=== PATIENT | male | born 1950 | race Hispanic/Latino ===

== ENCOUNTER → 2018-11-09 | Day surgery (SDC) | payer MEDICARE ==
[2018-11-06 13:17] LABS: BASOPHILS # (AUTO) 0.1 (0.0-0.1); BASOPHILS % 0.8 % (0.0-1.0); EOSINOPHILS # (AUTO) 0.3 (0.0-0.4); EOSINOPHILS % 5.1 % (0.0-6.0); HEMATOCRIT 41.8 % (38.2-49.6); HEMOGLOBIN 13.2 g/dL (14.0-18.0); LYMPHOCYTES # (AUTO) 1.7 (1.0-3.2); LYMPHOCYTES % 26.3 % (18.0-39.1); MEAN CORPUSCULAR HGB CONC 31.6 g/dL (31-35); MEAN CORPUSCULAR VOLUME 88.7 fL (81-99); MONOCYTES # (AUTO) 0.4 (0.2-0.8); MONOCYTES % 6.6 % (4.4-11.3); PLATELET COUNT 169 x10e3/uL (140-360); RED BLOOD COUNT 4.71 x10e6/uL (4.3-5.7); RED CELL DISTRIBUTION WIDTH 13.4 % (11.7-14.4)
[2018-11-06 14:02] LABS: ANION GAP 13.2 mmol/L (8-16); CALCIUM 9.4 mg/dL (8.4-10.2); CREATININE, SERUM 1.21 mg/dL (0.72-1.25); POTASSIUM 4.2 mmol/L (3.5-5.1)
[~2018-11-09] MED LIST: AVODART0.5 MG PO; BUPIVACAINE HC 0.75% PF 10ML VIAL INJ ONE; CHONDR SU A NA/HYALUR SOD 1 EACH KIT IO ONE; EPINEPHRINE HCL 1:1000 1ML 1 MG/ML AMP ONE; FINASTERIDE5 MG PO; IBUPROFEN400 MG PO; LIDOCAINE 2% /EPINEPHRINE 20 ML SDV INJ ONE; LIDOCAINE HCL-PF 4% 40 MG/1 ML 5ML AMP ONE; LOVASTATIN40 MG PO; MACROBID 100 M100 MG; METFORMIN HCL1000 MG PO; MIDAZOLAM HCL 2 MG/2 ML VIAL ONE; NITROFURANTOIN100 MG PO; OMEPRAZOLE40 MG PO; PILOCARPINE HCL(OPTH) 15 ML LIQD ONE; PIOGLITAZONE45 MG PO; POVIDONE IODINE 5% (OPTH) 30 ML BTL ONE; PROPOFOL IV EMULSION 10 MG/ML 20 ML VIAL ONE; TOBRAMYCIN/DEXAMETHASONE(OPTH) 3.5 GM TUBE ONE; TRIAMTERENE-HC1 EAC2 PO; ULTRAM50 MG PO; Z.0.ACTOS45 MG PO; Z.0.FINASTERIDE5 MG PO; Z.0.GLIPIZIDE10 MG PO; Z.0.LISINOPRIL40 MG PO; Z.0.NEXIUM40 MG PO; Z.0.VYTORIN 10-401 E PO
[2018-11-09] MEDS: CYCLOPENTOLATE HCL 1% OPTH SOLN 2ML BTL ONE (08:53)
[2018-11-09] MEDS: PHENYLEPHRINE HCL 2 ML DROPS ONE (08:53)
[2018-11-09] MEDS: GATIFLOXACIN(OPTH) 5 ML LIQD ONE (08:54)
[2018-11-09 10:20] VITALS: BP 117/69
== END | disposition home or self-care (01) ==
LOC: OR 08:23
PROVIDERS: ATTEND Ophthalmology
DX: H25.12 Age-related nuclear cataract, left eye (principal); E11.9 Type 2 diabetes mellitus without complications; I10 Essential (primary) hypertension; G47.33 Obstructive sleep apnea (adult) (pediatric); K21.9 Gastro-esophageal reflux disease without esophagitis; Z01.812 Encounter for preprocedural laboratory examination; Z79.84 Long term (current) use of oral hypoglycemic drugs; Z96.651 Presence of right artificial knee joint
CPT/HCPCS: 36415 ×2; 66984; 80048; 82948; 85025; J0171; J2001; J2250; J2704; V2632

== ENCOUNTER → 2019-03-23 | Outpatient (CLI) | payer MEDICARE ==
[~2019-03-23] MED LIST changes: -BUPIVACAINE HC 0.75% PF 10ML VIAL INJ ONE; -CHONDR SU A NA/HYALUR SOD 1 EACH KIT IO ONE; -EPINEPHRINE HCL 1:1000 1ML 1 MG/ML AMP ONE; -LIDOCAINE 2% /EPINEPHRINE 20 ML SDV INJ ONE; -LIDOCAINE HCL-PF 4% 40 MG/1 ML 5ML AMP ONE; -MIDAZOLAM HCL 2 MG/2 ML VIAL ONE; -PILOCARPINE HCL(OPTH) 15 ML LIQD ONE; -POVIDONE IODINE 5% (OPTH) 30 ML BTL ONE; -PROPOFOL IV EMULSION 10 MG/ML 20 ML VIAL ONE; +REGADENOSON 0.4 MG/5 ML SYR IV ONE; -TOBRAMYCIN/DEXAMETHASONE(OPTH) 3.5 GM TUBE ONE
== END ==
LOC: NM 07:12
PROVIDERS: ATTEND Internal Medicine Cardiovascular Disease
DX: R07.9 Chest pain, unspecified (principal)
CPT/HCPCS: 78452; 93017; A9502; J2785

== ENCOUNTER → 2019-04-19 | Day surgery (SDC) | payer MEDICARE ==
[2019-04-16 12:54] LABS: BASOPHILS # (AUTO) 0.1 (0.0-0.1); BASOPHILS % 0.8 % (0.0-1.0); EOSINOPHILS # (AUTO) 0.4 (0.0-0.4); EOSINOPHILS % 6.1 % (0.0-6.0); HEMATOCRIT 39.9 % (38.2-49.6); HEMOGLOBIN 12.7 g/dL (14.0-18.0); LYMPHOCYTES # (AUTO) 1.6 (1.0-3.2); LYMPHOCYTES % 25.4 % (18.0-39.1); MEAN CORPUSCULAR HEMOGLOBIN 28.5 pg (28-32); MEAN CORPUSCULAR HGB CONC 31.8 g/dL (31-35); MEAN CORPUSCULAR VOLUME 89.5 fL (81-99); MONOCYTES # (AUTO) 0.5 (0.2-0.8); MONOCYTES % 7.7 % (4.4-11.3); NEUTROPHILS # (AUTO) 3.7 (2.1-6.9); NEUTROPHILS % 59.8 % (38.7-80.0); PLATELET COUNT 177 x10e3/uL (140-360); RED BLOOD COUNT 4.46 x10e6/uL (4.3-5.7); RED CELL DISTRIBUTION WIDTH 13.5 % (11.7-14.4)
[2019-04-16 13:05] LABS: INR 0.99; PROTHROMBIN TIME 13.6 seconds (11.9-14.5)
[2019-04-16 13:12] LABS: ALBUMIN 3.8 g/dL (3.5-5.0); ALBUMIN/GLOBULIN RATIO 1.1 (0.8-2.0); ANION GAP 12.3 mmol/L (8-16); CALCIUM 9.3 mg/dL (8.4-10.2); CREATININE, SERUM 1.57 mg/dL (0.72-1.25); POTASSIUM 4.3 mmol/L (3.5-5.1)
[2019-04-19] VITALS (8 sets, daily range): BP systolic 98–122; BP diastolic 47–78
[~2019-04-19] VITALS: Ht 167.6 cm; Wt 146.1 kg
[~2019-04-19] MED LIST changes: +AMIODARONE HCL200 MG PO; +AMLODIPINE BESYL5 MG PO; +ASPIRIN325 MG PO; +BACLOFEN10 MG PO; +FENTANYL CITRATE/PF 100MCG/2 ML INJ ONE; +GLIPIZIDE5 MG PO; +HEPARIN SOD/SOD CHLORIDE 2,000 ML ONE; +IOPAMIDOL 370 MG/ML 200 ML INFUS..BTL INJ ONE; +LIDOCAINE HCL 2% LOCAL 20 ML VIAL ONE; +METOPROLOL SUCC25 MG PO; +MIDAZOLAM HCL 2 MG/2 ML VIAL ONE; -REGADENOSON 0.4 MG/5 ML SYR IV ONE; +SODIUM CHLORIDE 0.9% 1000ML 1,000 ML ONE
--- NOTE | 2019-04-19 10:33 | NUR ---
1033Received pt to room #10 bedside report received from Hua ALVA. Alert oriented and appropriate, PERRLA, respirations even and unlabored to room air. Pulses x4 extremities equal and strong. Pedal pulses PT/DP X4 Cap fill brisk < 3 sec. TR band down at 1130 dc home. Skin warm and dry integrity appears D/I. IV 20g to left hand 75cchr. Presents healthy w/o s/s of infiltration or complaint. Abdomen soft and supple. pt offered toileting, denies need to urinate or defecate. No personal affects with patient. Family at bedside. Pt and family verbalizes understanding of POC. Currently w/o complaint of pain or need. Back to baseline orientation. ds/xavier
--- NOTE | 2019-04-19 11:30 | NUR ---
1130a RADIAL Compression removal: Initial Cuff volume 13 cc 1130a -3cc Removed No hematoma/bleeding noted with normal neurovascular function. 1145a -5cc Removed No hematoma/ bleeding noted with normal neurovascular function. 12n -5cc Removed No hematoma/bleeding noted with normal neurovascular function. Air removal completed. Stasis achieved sterile 2x2,Tegaderm, Coban dressing No hematoma, bleeding noted with normal neurovascular function. Wrist splint in place. Pt instructed on POC. Ds/Rn
--- NOTE | 2019-04-19 12:15 | NUR ---
1215 Pt meets DC criteria. assessed for s/s of complication and presence of hematoma. Skin warm, dry, no discolor, and pulses present. IV removed from left hand. Distal tip appears intact. VS WNL. Pt denies pain, sob, or need at this time. Family at bedside. Review of discharge paperwork and follow up instructions. verbalized understanding. Pt to wheelchair and transported to front of hospital. Transferred to private vehicle under own strength w/o incident with DC paperwork in hand. - ds/rn
--- NOTE | 2019-04-19 22:46 | Operative Report ---
DATE OF PROCEDURE: SURGEON: Richard Jamil DO PROCEDURES PERFORMED: 1. Conscious sedation, 26 minutes. 2. Selective coronary angiography x2. 3. Left heart catheterization. PREPROCEDURE DIAGNOSIS: Premature ventricular complexes with clinical risk factors for CAD. POSTPROCEDURE DIAGNOSIS: Nonobstructive coronary artery disease. ESTIMATED BLOOD LOSS: Less than 20 mL. SPECIMENS REMOVED: None. PROCEDURE IN DETAIL: After informed consent was obtained, the patient was brought to the cardiac catheterization laboratory in a fasting and nonsedated state. Bilateral groins were prepped and draped in the usual sterile fashion. His right wrist was prepped and draped in the usual sterile fashion. A 2% lidocaine was instilled over the right anterior wrist for local anesthesia. Using micropuncture needle, the right radial artery was accessed via modified Seldinger technique and a 6-[place] Slender sheath was placed. Next, diagnostic coronary angiography was performed using a TIG-4 catheter. Left heart catheterization was performed as well. The patient tolerated the procedure well with no immediate complications, was transferred back to his room in stable condition. PROCEDURAL FINDINGS: 1. Left main coronary artery is patent. 2. Left anterior descending coronary artery is patent with luminal irregularities. 3. Left circumflex coronary artery is patent with luminal irregularities in two small obtuse marginal vessels. 4. The right coronary artery is a very large vessel provides three posterolateral branches with mild 20% stenotic lesions. This also provides the PDA. 5. Left ventricular end-diastolic pressure is 10-15 mmHg. No aortic valve gradient present upon pullback. IMPRESSION: 1. Premature ventricular complexes. 2. Nonobstructive coronary artery disease. RECOMMENDATIONS: Continue medical therapy. The patient will be referred to EP for possible PVC ablation. Richard Jamil DO BM/MODL /[id number]
== END | disposition home or self-care (01) ==
LOC: CATH LAB 10:57
PROVIDERS: ATTEND Internal Medicine Cardiovascular Disease
DX: I25.10 Atherosclerotic heart disease of native coronary artery without angina pectoris (principal); I49.3 Ventricular premature depolarization; I10 Essential (primary) hypertension; E66.9 Obesity, unspecified; E11.9 Type 2 diabetes mellitus without complications; Z01.812 Encounter for preprocedural laboratory examination; Z79.82 Long term (current) use of aspirin; Z79.84 Long term (current) use of oral hypoglycemic drugs
CPT/HCPCS: 36415; 80053; 85025; 85610; 93458; C1887; J2001; J2250; J3010; J7030; Q9967; 99152

== ENCOUNTER 2019-12-07 01:44 | Inpatient (IN) | payer MEDICARE, OTHER ==
[2019-12-07] VITALS (8 sets, daily range): BP systolic 114–155; BP diastolic 66–100
[~2019-12-07] VITALS: Ht 167.6 cm; Wt 139.0 kg
[~2019-12-07 01:44] MED LIST changes: -FENTANYL CITRATE/PF 100MCG/2 ML INJ ONE; -HEPARIN SOD/SOD CHLORIDE 2,000 ML ONE; -IOPAMIDOL 370 MG/ML 200 ML INFUS..BTL INJ ONE; -LIDOCAINE HCL 2% LOCAL 20 ML VIAL ONE; -MIDAZOLAM HCL 2 MG/2 ML VIAL ONE; -SODIUM CHLORIDE 0.9% 1000ML 1,000 ML ONE
[2019-12-07] MEDS ORDERED: OCTREOTIDE ACETATE 500 MCG in SODIUM CHLORIDE 0.9% 250ML 250 ML IV STA (01:54)
[2019-12-07] MEDS ORDERED: DEXTROSE 5%/0.45% SOD CHL 1,000 ML IV ONE ×2 (02:00)
[2019-12-07 02:01] LABS: BASOPHILS % 0.1 % (0.0-1.0); EOSINOPHILS # (AUTO) 0.4 (0.0-0.4); EOSINOPHILS % 4.7 % (0.0-6.0); HEMATOCRIT 35.2 % (38.2-49.6); HEMOGLOBIN 10.3 g/dL (14.0-18.0); LYMPHOCYTES # (AUTO) 1.3 (1.0-3.2); LYMPHOCYTES % 16.9 % (18.0-39.1); MEAN CORPUSCULAR HEMOGLOBIN 23.6 pg (28-32); MEAN CORPUSCULAR HGB CONC 29.3 g/dL (31-35); MEAN CORPUSCULAR VOLUME 80.7 fL (81-99); MONOCYTES # (AUTO) 0.7 (0.2-0.8); MONOCYTES % 8.9 % (4.4-11.3); NEUTROPHILS # (AUTO) 5.1 (2.1-6.9); PLATELET COUNT 225 x10e3/uL (140-360); RED BLOOD COUNT 4.36 x10e6/uL (4.3-5.7); RED CELL DISTRIBUTION WIDTH 14.9 % (11.7-14.4)
--- NOTE | 2019-12-07 02:02 | Emergency Department Note ---
History of Present Illnes History of Present Illness Chief Complaint: General Medicine Complaints History of Present Illness This is a 69 year old male arrives to the ED for 3 days of low blood sugar, patient is on oral metformin and a sulfonylurea. Per family and EMS patient's blood sugar was in the 20s at home. Patient states he checked his blood sugar at around 1:30 in the morning because he felt diaphoretic. . Manager Gift Required: No Onset (how long ago): day(s) Timing of current episode: constant Progression: worsening Chronicity: new Relieving factors: none Past Medical/Family History Physician Review I have reviewed the patient's past medical and family history. Any updates have been documented here. 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 Social History Smoking Cessation: Never Smoker Counseling Performed: No Review of Systems Review of Systems Constitutional: Reports no symptoms, Reports as per HPI EENTM: Reports no symptoms Cardiovascular: Reports no symptoms Respiratory: Reports no symptoms Gastrointestinal: Reports no symptoms Genitourinary: Reports no symptoms Musculoskeletal: Reports no symptoms Integumentary: Reports no symptoms Neurological: Reports no symptoms Psychological: Reports no symptoms Endocrine: Reports no symptoms Hematological/Lymphatic: Reports no symptoms Physical Exam Related Data Allergies: Coded Allergies: No Known Allergies (Unverified , 09/15/11) Vital signs reviewed: Yes Physical Exam CONSTITUTIONAL Constitutional: Present well-developed, Present morbidly obese HENT HENT: Present normocephalic, Present atraumatic, Present oropharynx clear/moist, Present nose normal HENT L/R: Present left ext ear normal, Present right ext ear normal EYES Eyes: Reports PERRL, Reports conjunctivae normal NECK Neck: Present ROM normal PULMONARY Pulmonary: Present effort normal, Present breath sounds normal CARDIOVASCULAR Cardiovascular: Present regular rhythm, Present heart sounds normal, Present capillary refill normal, Present normal rate GASTROINTESTINAL Abdominal: Present soft, Present nontender, Present bowel sounds normal GENITOURINARY Genitourinary: Present exam deferred SKIN Skin: Present warm, Present dry MUSCULOSKELETAL Musculoskeletal: Present ROM normal NEUROLOGICAL Neurological: Present alert, Present oriented x 3, Present no gross motor or sensory deficits PSYCHOLOGICAL Psychological: Present mood/affect normal, Present judgement normal Results Laboratory Laboratory Laboratory Tests Test 12/07/19 01:50 Lab results reviewed: Yes Imaging Imaging results reviewed: Yes Critical Care Time Total Critical Care Time (min): 65 Critical care time exclusive o: separately billable procedures Critcal care necessary due to: endocrine crisis Assessment & Plan Medical Decision Making MDM 69-year-old male arrives to the ED with marked hypoglycemia, pt noted to be on oral sulfonyureas, octreotide and D5W initiated, patient admitted to [facility] for glucose monitoring. Assessment & Plan Final Impression: (1) Hypoglycemia associated with type 2 diabetes mellitus Depart Disposition: ADMITTED Home Meds Reported Medications Aspirin (ASPIRIN) 325 Mg Tablet, 325 MG PO DAILY, #30 TAB 12/07/19 Famotidine (FAMOTIDINE) 20 Mg Tab, 40 MG PO HS, #30 TAB 12/07/19 Lovastatin (LOVASTATIN) 40 Mg Tablet, 40 MG PO DAILY THERAPEUTICALLY SUBSTITUTED WITH SIMVASTATIN 20MG 12/07/19 Amlodipine Besylate (AMLODIPINE BESYLATE) 5 Mg Tablet, 5 MG PO DAILY, #30 TAB 04/16/19 Triamterene/Hydrochlorothiazid (TRIAMTERENE-HCTZ 37.5-25 MG CP) 1 Each Capsule, 1 TAB PO DAILY 08/08/18 Omeprazole (OMEPRAZOLE) 40 Mg Capsule.dr, 40 MG PO DAILY 07/31/14 Lisinopril (Lisinopril) 40 Mg Tablet, 40 MG PO DAILY 09/15/11 Discontinued Reported Medications Glipizide (GLIPIZIDE) 5 Mg Tablet, 10 MG PO DAILY, TAB 04/16/19 Metformin Hcl (METFORMIN HCL) 1,000 Mg Tablet, 1000 MG PO BID 07/31/14 Aspirin (ASPIRIN) 325 Mg Tablet, 325 MG PO DAILY, #30 TAB 04/16/19 Metoprolol Succinate (METOPROLOL SUCCINATE) 25 Mg Tab.er.24h, 25 MG PO DAILY 04/16/19 Amiodarone Hcl (AMIODARONE HCL) 200 Mg Tablet, 200 MG PO BID 04/16/19 Baclofen (BACLOFEN) 10 Mg Tablet, 10 MG PO TID, #90 TAB 04/16/19 Pioglitazone Hcl (PIOGLITAZONE) 45 Mg Tablet, 45 MG PO DAILY 07/31/14 Lovastatin (LOVASTATIN) 40 Mg Tablet, 40 MG PO BEDTIME THERAPEUTICALLY SUBSTITUTED WITH SIMVASTATIN 20MG 07/31/14 Medications in the ED Dextrose/Sodium Chloride 1,000 ml @ STK-MED ONCE IV ; Start 12/07/19 at 02:00; Stop 12/07/19 at 01:54; Status DC Dextrose/Sodium Chloride 1,000 ml @ 150 mls/hr Q6H40M ONCE IV Last administered on 12/07/19at 01:57; Admin Dose 150 MLS/HR; Start 12/07/19 at 02:00; Stop 12/07/19 at 08:39 Octreotide Acetate 500 mcg/ Sodium Chloride 251 ml @ 0 mls/hr Q0M STAT IV ; Start 12/07/19 at 01:54; Stop 12/07/19 at 01:58; Status DC MISHA STEVENS DO Dec 07, 2019 02:02
[2019-12-07] MEDS ORDERED: OCTREOTIDE ACETATE 0.1 MG/ML 100MCG AMP IV ONE (02:15)
[2019-12-07 02:17] LABS: ALANINE AMINOTRANSFERASE 12 IU/L (0-55); ALBUMIN/GLOBULIN RATIO 1.1 (0.8-2.0); ALKALINE PHOSPHATASE 51 IU/L (40-150); ANION GAP 17.2 mmol/L (8-16); BLOOD UREA NITROGEN 19 mg/dL (7-26); BUN/CREATININE RATIO 17 (6-25); CALCIUM 9.2 mg/dL (8.4-10.2); CARBON DIOXIDE 26 mmol/L (22-29); CHLORIDE 94 mmol/L (98-107); CREATINE KINASE 158 IU/L (30-200); EST GLOMERULAR FILTRATION RATE > 60 ML/MIN (60-); POTASSIUM 4.2 mmol/L (3.5-5.1); SODIUM 133 mmol/L (136-145)
[2019-12-07 02:18] LABS: GLUCOSE 35 mg/dL (74-118)
[2019-12-07 02:31] LABS: CLARITY,URINE SL CLOUDY (CLEAR); COLOR,URINE YELLOW (YELLOW)
[2019-12-07 02:32] LABS: BILIRUBIN,URINE NEGATIVE (NEGATIVE); KETONES,URINE NEGATIVE (NEGATIVE); LEUKOCYTE ESTERASE ,URINE SMALL (NEGATIVE); NITRITE,URINE POSITIVE (NEGATIVE); PROTEIN,URINE DIPSTICK NEGATIVE (NEGATIVE); URINE UROBILINOGEN 0.2 mg/dL (0.2 - 1)
[2019-12-07] MEDS ORDERED: DEXTROSE 50% SYRINGE 50 ML IV ONE (02:39)
[2019-12-07] MEDS ORDERED: DEXTROSE 5% 1,000 ML IV ONE (02:39)
[2019-12-07 02:41] LABS: BACTERIA,URINE MODERATE /HPF; EPITHELIAL CELLS,URINE FEW /LPF; RBC,URINE 0-5 /HPF (0-5); WBC,URINE (MAN) 21-50 /HPF (0-5)
[2019-12-07] MEDS ORDERED: ONDANSETRON HCL INJ 2MG/ML 2ML 2 MG/ML VIAL IV STA (02:41)
--- NOTE | 2019-12-07 02:45 | NUR ---
D5 .045% NS stopped at this time and D5W started per ER MD's orders.
[2019-12-07] MEDS ORDERED: DEXTROSE 50% SYRINGE 50 ML IV STA (02:49)
[2019-12-07] MEDS ORDERED: ONDANSETRON HCL INJ 2MG/ML 2ML 2 MG/ML VIAL ONE (02:50)
[2019-12-07] MEDS ORDERED: LOVASTATIN40 MG PO (02:59)
[2019-12-07] MEDS ORDERED: FAMOTIDINE20 MG PO (02:59)
[2019-12-07] MEDS ORDERED: DEXTROSE 5% 1,000 ML IV SCH (03:00)
[2019-12-07] MEDS ORDERED: ASPIRIN325 MG PO (03:02)
--- NOTE | 2019-12-07 03:25 | Diagnostic Imaging Report ---
EXAMINATION: CHEST SINGLE (PORTABLE) INDICATION: Low blood sugar. COMPARISON: None FINDINGS: Exam is somewhat limited by soft tissue attenuation and portable technique. TUBES and LINES: None. LUNGS: Low lung volumes. Patchy opacities of the lung bases. PLEURA: Possible small left pleural effusion. No pneumothorax. HEART AND MEDIASTINUM: The cardiomediastinal silhouette is mildly enlarged. BONES AND SOFT TISSUES: No acute osseous lesion. Soft tissues are unremarkable. UPPER ABDOMEN: No free air under the diaphragm. IMPRESSION: Low lung volumes with patchy bibasilar opacities, likely atelectasis, although infection is possible in the appropriate clinical setting. Possible small left pleural effusion. Suggest follow-up chest radiograph in 6-8 weeks. Mild cardiomegaly. Signed by: Dr. Abhijeet Ko MD on 12/07/2019 3:21 AM
--- NOTE | 2019-12-07 04:00 | NUR ---
Patient arrived to floor via Stretcher. Admit and assessment completed.
--- NOTE | 2019-12-07 05:00 | NUR ---
Patient c/o of ROSE = 6. Called MD and received ordered. Med given as ordered by MD. Continue monitor.
[2019-12-07] MEDS ORDERED: ACETAMINOPHEN 325 MG TAB PO PRN (06:30)
[2019-12-07] MEDS ORDERED: OCTREOTIDE ACETATE 0.05 MG/ML AMP SQ ONE (08:30)
[2019-12-07] MEDS: ASPIRIN 325 MG TAB PO SCH (09:13)
[2019-12-07] MEDS: PANTOPRAZOLE SOD 40 MG TABEC PO SCH (09:13)
[2019-12-07] MEDS: AMLODIPINE BESYLATE 5 MG TAB PO SCH (09:13)
[2019-12-07 10:32] LABS: CREATINE KINASE MB 4.3 ng/mL (0-5.0)
--- NOTE | 2019-12-07 11:00 | NUR ---
attending changed to Dr. Mason per case management request.
[2019-12-07] MEDS ORDERED: ENOXAPARIN SOD INJ 40 MG/0.4 ML SYR SC SCH (17:00)
--- NOTE | 2019-12-07 17:41 | NUR ---
pt doing well today. ambulating to restroom and back to bed/chair. pt aware of plan of blood sugar monitoring overnight and possibly discharging home tomorrow.
--- NOTE | 2019-12-07 17:42 | NUR ---
patient's blood sugars that have not crossed into system yet- at 1453- 176 at 1624- 152
[2019-12-07 19:41] LABS: CREATINE KINASE MB 4.6 ng/mL (0-5.0)
--- NOTE | 2019-12-07 19:41 | NUR ---
Received pt this evening in chair at bedside. Pt with no s/sx of distress. A/O x 4, and no c/o at this time. Bed is low and locked, personal items within reach. Will cont to mon patient.
--- NOTE | 2019-12-07 20:16 | History and Physical ---
CHIEF COMPLAINT: Hypoglycemia. HISTORY OF PRESENT ILLNESS: A 69-year-old morbidly obese male with known history of type 2 diabetes, who was brought in via EMS after he was found to have a blood glucose level of in the 20s. The patient around 130 this morning woke up, felt very diaphoretic. Checked sugars, found to be very low and called 911. On arrival, EMS found to have a blood glucose level of 20s. The patient takes metformin and sulfonylurea at home. The patient reports he was eating well with no issues. Does not recall his last hemoglobin A1c. The patient was seen and evaluated at bedside on the medical floor. He is currently doing well with no other issues at this time. His blood glucose level is better controlled. REVIEW OF SYSTEMS: Pertinent positive: Diaphoresis, confusion. The rest of 14-point review of systems have been reviewed with the patient and are negative. ALLERGIES: NO KNOWN DRUG ALLERGIES. HOME MEDICATIONS: He takes amlodipine, aspirin, famotidine, lovastatin, omeprazole, metformin, lisinopril, triamterene, hydrochlorothiazide, glipizide. PAST MEDICAL HISTORY: Type 2 diabetes, hypertension, morbidly obese, and acid reflux. PAST SURGICAL HISTORY: Reports none. FAMILY HISTORY: Hypertension, diabetes. SOCIAL HISTORY: No drugs. No alcohol. Does not smoke. Good social support. PHYSICAL EXAMINATION: VITAL SIGNS: Temperature 98.5, pulse of 80, respiratory rate is 22, blood pressure 136/66. His pulse ox is 100%, he is on 2 L nasal cannula. GENERAL: Not in acute distress. Alert and oriented x3. Cooperative on examination. HEENT: Head is normocephalic, atraumatic. Eyes; pupils are equal, round, and reactive to light bilaterally. Extraocular movements are intact bilaterally. NECK: Supple. Good range of motion. Throat, no evidence of any erythema or exudates in the posterior pharynx. Has poor dentition. PULMONARY: Clear to auscultation bilaterally. No wheezing, no rales, no rhonchi, no crackles appreciated. CARDIOVASCULAR: Positive S1, S2. No murmurs, rubs, or gallops appreciated. ABDOMEN: Soft, nondistended, nontender to palpation. Bowel sounds present. MUSCULOSKELETAL: Strength is 5/5 throughout. No evidence of muscle deficits on examination. No weakness appreciated. NEUROLOGICAL: Cranial nerves 2 through 12 grossly intact. No evidence of any neurological deficits on exam. SKIN: Intact. Warm to touch. Good cap refill. PSYCHIATRIC: Normal affect and mood. EXTREMITIES: No edema. Good range of motion throughout. LABORATORY DATA: Show white count 7.3, hemoglobin 10.3, hematocrit 35, platelets of 225. Chemistry; sodium 133, potassium 4.3, chloride 94, bicarb 26, anion gap of 17, BUN is 19, creatinine is 1.1, and glucose was 35 when he came in is up trended now 97, calcium 9.3, total bilirubin 0.5, AST 18, ALT 12, alkaline phosphatase 51, CK 158, troponin is 0.005. Hemoglobin A1c was not collected. Albumin was 4. Urinalysis was negative. Serology; perez virus is pending. MICROBIOLOGY: None. IMAGING STUDIES: Chest x-ray shows low lung volumes, bibasilar opacity likely atelectasis. IMPRESSION: 1. Metabolic encephalopathy secondary to hypoglycemia. 2. Hypoglycemia on oral anti glycemics. 3. Hypertension. 4. Acid reflux. PLAN: At this time patient came in, found to have a glucose level of 20s. According to the EMS report, he is currently doing well. He is on a D5 drip. He was given octreotide already in the emergency room. His glucose is better. He is eating. He is on a regular diet. I ordered a hemoglobin A1c stat to see where his A1c is. I suspect that he will not go back on a sulfonylurea. He is on metformin at home. We are going to hold all his medications for now and monitor his glucose very closely. Once we get the A1c it will help us determine the next plan of care. He will be on Lovenox for DVT prophylaxis. MD RAVIN Rai/APRYL /[id number]
[2019-12-07] MEDS ORDERED: SIMVASTATIN 40 MG TAB PO SCH (21:00)
[2019-12-07] MEDS ORDERED: FAMOTIDINE 20 MG TAB PO SCH (21:00)
[2019-12-08] VITALS: BP 136/49
--- NOTE | 2019-12-08 00:32 | Consultation ---
DATE OF CONSULTATION: 12/07/2019 Cardiology Consult Note REASON FOR CONSULT: Syncope. CHIEF COMPLAINT: Blood sugar was low. HISTORY OF PRESENT ILLNESS: The patient is a 69-year-old man with history of diabetes, hypertension, hyperlipidemia, suspected obstructive sleep apnea, who presents with an episode of being unresponsive, was found to have blood sugar as low as 35, currently feeling better. Denies any chest pain, shortness of breath, lower extremity edema, palpitation. He said he had cardiac cath several months ago, showed no significant CAD. PAST MEDICAL HISTORY: As per HPI. REVIEW OF SYSTEMS: Negative other than stated in HPI. SOCIAL HISTORY: Does not smoke, drink, or abuse drugs. FAMILY HISTORY: Noncontributory. OUTPATIENT MEDICATIONS: Reviewed. ALLERGIES: REVIEWED. OBJECTIVE: VITAL SIGNS: Temperature afebrile, pulse 77, respiratory rate 20, blood pressure 114/87, saturating 99% on 2 L nasal cannula. GENERAL: man, morbidly obese, no acute distress. CARDIOVASCULAR: Regular rate and rhythm. No murmurs, rubs, or gallops. LUNGS: Difficult exam due to obesity, but clear to auscultation. ABDOMEN: Obese, soft, nontender, nondistended. NEURO AND PSYCH: Alert and oriented to person, place, and time. Normal affect. INPATIENT MEDICATIONS: Reviewed. LABORATORY DATA: Reviewed. TELEMETRY DATA: Reviewed, shows normal sinus rhythm. ASSESSMENT: 1. Syncope. 2. Hypertension. PLAN: Syncope related to low blood sugars, but I suspect a cardiovascular cause as had recent full cardiovascular workup including cardiac catheterization within the last year, rule out for acute GA and sinus rhythm on telemetry. Thank you for this consult. We will continue to follow. Okay to be discharged from cardiovascular standpoint. MD MERYL Mott/MODL /[id number]
[2019-12-08 04:00] VITALS: BP 120/87
[2019-12-08 05:06] LABS: BASOPHILS # (AUTO) 0.1 (0.0-0.1); EOSINOPHILS # (AUTO) 0.4 (0.0-0.4); EOSINOPHILS % 6.8 % (0.0-6.0); HEMATOCRIT 31.5 % (38.2-49.6); HEMOGLOBIN 9.3 g/dL (14.0-18.0); LYMPHOCYTES # (AUTO) 1.5 (1.0-3.2); LYMPHOCYTES % 28.3 % (18.0-39.1); MEAN CORPUSCULAR HEMOGLOBIN 23.9 pg (28-32); MEAN CORPUSCULAR HGB CONC 29.5 g/dL (31-35); MONOCYTES # (AUTO) 0.5 (0.2-0.8); MONOCYTES % 9.9 % (4.4-11.3); NEUTROPHILS # (AUTO) 2.8 (2.1-6.9); NEUTROPHILS % 53.8 % (38.7-80.0); PLATELET COUNT 204 x10e3/uL (140-360); RED BLOOD COUNT 3.89 x10e6/uL (4.3-5.7); RED CELL DISTRIBUTION WIDTH 14.8 % (11.7-14.4)
[2019-12-08 05:32] LABS: ALANINE AMINOTRANSFERASE 13 IU/L (0-55); ALBUMIN 3.5 g/dL (3.5-5.0); ALKALINE PHOSPHATASE 44 IU/L (40-150); ANION GAP 12.8 mmol/L (8-16); BLOOD UREA NITROGEN 17 mg/dL (7-26); BUN/CREATININE RATIO 20 (6-25); CALCIUM 8.8 mg/dL (8.4-10.2); CARBON DIOXIDE 27 mmol/L (22-29); CHLORIDE 94 mmol/L (98-107); CREATININE, SERUM 0.86 mg/dL (0.72-1.25); EST GLOMERULAR FILTRATION RATE > 60 ML/MIN (60-); GLUCOSE 117 mg/dL (74-118); POTASSIUM 4.8 mmol/L (3.5-5.1); SODIUM 129 mmol/L (136-145)
--- NOTE | 2019-12-08 06:50 | NUR ---
Pt resting in bed, easily aroused, no distress noted, no c/o weaning of O2 in process, pt states anticipate dc home today. Report given to oncoming staff.
[2019-12-08 07:32] VITALS: BP 130/62
[2019-12-08 08:00] VITALS: BP 130/62
[2019-12-08] MEDS: PANTOPRAZOLE SOD 40 MG TABEC PO SCH (08:59)
[2019-12-08] MEDS: AMLODIPINE BESYLATE 5 MG TAB PO SCH (08:59)
[2019-12-08] MEDS: ASPIRIN 325 MG TAB PO SCH (08:59)
--- NOTE | 2019-12-08 11:18 | Progress Note ---
DATE: Cardiology Progress Note SUBJECTIVE: The patient is feeling better. Denies any cardiovascular symptoms. Denies weakness or syncope. OBJECTIVE: VITAL SIGNS: Temperature is 98.5, heart rate is 81, respirations are 16, blood pressure is 130/62, oxygen saturations 98% on 2 L nasal cannula. GENERAL: Well appearing, no apparent distress. CARDIOVASCULAR: Regular rate and rhythm with ectopy. ABDOMEN: Soft, nontender, and nondistended. EXTREMITIES: No edema. CARDIOVASCULAR MEDICATIONS: Reviewed. LABORATORY DATA: Reviewed. Glucose 122. TELEMETRY: Telemetry monitoring was personally reviewed by myself and revealed normal sinus rhythm with premature ventricular complexes. IMPRESSION: 1. Syncope. 2. Hypoglycemia. 3. Hypertension. 4. Nonobstructive coronary artery disease. 5. Premature ventricular complexes. 6. Obesity. RECOMMENDATIONS: Hypoglycemia treatment per primary team. Likely to hold metformin until followup with primary care. Resume home metoprolol and amiodarone for his premature ventricular complexes. Resume antihypertensives. No evidence of acute coronary syndrome. I do not suspect he had a cardiac arrhythmias that caused his syncopal event. The patient is stable for discharge from a cardiovascular standpoint with outpatient followup. DO LINDSAY Benjamin/APRYL /[id number]
--- NOTE | 2019-12-08 15:21 | NUR ---
patient discharged. IV access removed. patient given discharge instructions and prescription called into his [facility]. daughter, jesse, updated on new home medications. patient and family clear on follow up appts needed. patient walked to family's vehicle in stable condition.
--- NOTE | 2019-12-08 16:09 | Discharge Summary ---
FINAL DISCHARGE DIAGNOSES: 1. Metabolic encephalopathy secondary to hypoglycemia. 2. Hypertension. 3. Acid reflux. 4. Hemoglobin A1c 5.3. The patient has prediabetes. CONSULTANTS: Cardiology. PHYSICAL EXAMINATION: VITAL SIGNS: Temperature is 98.5, pulse 81, respiratory rate 16, blood pressure 130/62, pulse ox 100% on room air. LABORATORY DATA: Labs show white count was 5.2, hemoglobin 9.3, hematocrit 31.5, platelets of 204. Chemistry, sodium was 129, potassium 4.8, chloride 94, bicarb 27, anion gap of 12, BUN is 17, creatinine is 0.86, glucose is 117, calcium 8.8, total bilirubin was 0.7, AST 18, ALT 13, alkaline phosphatase 44. Troponins were all negative. Albumin 3.5. His glucose was 135 before discharge. Urinalysis negative. Serology, coronavirus was not detected. MICROBIOLOGY: None. IMAGING STUDIES: Chest x-ray shows low lung volumes with patchy bibasilar opacity likely atelectasis although infection is possible appropriate clinical setting. There is a small pleural effusion. HOSPITAL COURSE: A 69-year-old male, morbidly obese, known history of type 2 diabetes, comes in with altered mental status, found to be very hypoglycemic with a glucose level in the 30s according to the reports. While here, the patient was on a D5 drip. I admitted to [facility]. He was on a regular diet in which he improved tremendously. The patient was taken sulfonylurea and metformin at home and was found to have a hemoglobin A1c of 5.3. I discussed with the patient about discontinuing his medications and to monitor his glucose levels at home and to prediabetes diet. I did have Cardiology evaluate the patient. He did have negative cardiac enzymes. No cardiac workup was needed. He was cleared for discharge by Cardiology. On discharge, the patient was doing well, back to baseline with no complaints. I did talk with him about discontinuing his anti glycemic medications. I discussed this case with his primary care physician and discussed with them that his hemoglobin A1c was 5.3. The patient also had a possibly underlying urinary tract infection and a prescription for oral Omnicef will be sent to the patient's pharmacy for 7 total days. This was discussed with the patient and the family and they verbalized understanding. MEDICATIONS: See med reconciliation form including discontinuing his metformin and his sulfonylurea due to hemoglobin A1c 5.3 and the patient will have a prescription sent to his pharmacy for oral Omnicef for7 total days. DISPOSITION: Home. CONDITION: Stable. DIET: Healthy. In the event of worsening symptoms, the patient was asked to come back to the ED for further evaluation. Discharge summary took greater than 35 minutes. MD RAVIN Rai/MODL /[id number]
[2019-12-10 20:00] VITALS: BP 142/63
[2019-12-10 21:28] VITALS: BP 130/62
== END 2019-12-08 15:24 | disposition home or self-care (01) | DRG 637 ==
LOC: ER 01:50 → ERHOLD 02:23 → IMCU 03:46
PROVIDERS: ADMIT Internal Medicine; ATTEND Internal Medicine
DX: E11.649 Type 2 diabetes mellitus with hypoglycemia without coma (principal); G93.41 Metabolic encephalopathy; N39.0 Urinary tract infection, site not specified; R73.03 Prediabetes; Z79.84 Long term (current) use of oral hypoglycemic drugs; E66.01 Morbid (severe) obesity due to excess calories; Z79.82 Long term (current) use of aspirin; K21.9 Gastro-esophageal reflux disease without esophagitis; Z83.3 Family history of diabetes mellitus; Z82.49 Family history of ischemic heart disease and other diseases of the circulatory system; I10 Essential (primary) hypertension; G47.33 Obstructive sleep apnea (adult) (pediatric); I25.10 Atherosclerotic heart disease of native coronary artery without angina pectoris; I49.3 Ventricular premature depolarization; Z11.59 Encounter for screening for other viral diseases
CPT/HCPCS: 36415; 71045; 80053; 81001; 82550; 82553; 82947; 82948; 83036; 83880; 84484; 85025; 96361; 99284; J1650; J2354; J2405; J7070; J7799; U0002

== ENCOUNTER → 2020-08-07 | Day surgery (SDC) | payer MEDICARE ==
[2020-08-04 12:16] LABS: BASOPHILS % 0.7 % (0.0-1.0); EOSINOPHILS # (AUTO) 0.3 (0.0-0.4); EOSINOPHILS % 6.8 % (0.0-6.0); HEMOGLOBIN 10.8 g/dL (14.0-18.0); LYMPHOCYTES # (AUTO) 1.2 (1.0-3.2); LYMPHOCYTES % 27.1 % (18.0-39.1); MEAN CORPUSCULAR HEMOGLOBIN 23.9 pg (28-32); MEAN CORPUSCULAR HGB CONC 28.4 g/dL (31-35); MEAN CORPUSCULAR VOLUME 84.3 fL (81-99); MONOCYTES # (AUTO) 0.3 (0.2-0.8); MONOCYTES % 7.2 % (4.4-11.3); NEUTROPHILS # (AUTO) 2.7 (2.1-6.9); PLATELET COUNT 163 x10e3/uL (140-360); RED BLOOD COUNT 4.51 x10e6/uL (4.3-5.7); RED CELL DISTRIBUTION WIDTH 18.1 % (11.7-14.4)
[~2020-08-07] MED LIST changes: +ACTOS15 MG PO; +FAMOTIDINE20 MG PO; +LIDOCAINE HCL 2% LOCAL INJ 5 ML SDV VIAL INJ ONE; +PROPOFOL IV EMULSION 10 MG/ML 20 ML VIAL ONE
[2020-08-07 10:35] VITALS: BP 121/73
== END | disposition home or self-care (01) ==
LOC: OR 07:00
PROVIDERS: ATTEND Internal Medicine Gastroenterology
DX: D50.9 Iron deficiency anemia, unspecified (principal); D12.2 Benign neoplasm of ascending colon; K64.8 Other hemorrhoids; K29.50 Unspecified chronic gastritis without bleeding; K21.9 Gastro-esophageal reflux disease without esophagitis; Z71.3 Dietary counseling and surveillance; E11.9 Type 2 diabetes mellitus without complications; I10 Essential (primary) hypertension; E66.01 Morbid (severe) obesity due to excess calories; Z68.43 Body mass index [BMI] 50.0-59.9, adult; E78.5 Hyperlipidemia, unspecified; R07.9 Chest pain, unspecified; Z01.810 Encounter for preprocedural cardiovascular examination; Z01.812 Encounter for preprocedural laboratory examination; Z20.822 Contact with and (suspected) exposure to COVID-19; Z79.82 Long term (current) use of aspirin
CPT/HCPCS: 36415 ×2; 43239; 45385; 82948; 85025; 93005; J2001; J2704; U0002; 45378

== ENCOUNTER 2021-03-31 12:53 | Emergency (ER) | payer OTHER ==
[~2021-03-31] VITALS: Ht 167.6 cm; Wt 135.2 kg
[~2021-03-31 12:53] MED LIST changes: -LIDOCAINE HCL 2% LOCAL INJ 5 ML SDV VIAL INJ ONE; -PROPOFOL IV EMULSION 10 MG/ML 20 ML VIAL ONE
[2021-03-31] MEDS ORDERED: ONDANSETRON HCL INJ 2MG/ML 2ML 2 MG/ML VIAL IV NR (13:21)
[2021-03-31] MEDS ORDERED: ONDANSETRON HCL INJ 2MG/ML 2ML 2 MG/ML VIAL ONE (13:38)
[2021-03-31] MEDS ORDERED: ONDANSETRON ODT4 MG PO (14:39)
== END 2021-03-31 14:49 | disposition home or self-care (01) ==
LOC: FSED 13:04
DX: R11.2 Nausea with vomiting, unspecified (principal); E86.0 Dehydration; E11.65 Type 2 diabetes mellitus with hyperglycemia; I10 Essential (primary) hypertension; E78.5 Hyperlipidemia, unspecified
CPT/HCPCS: 74176; 80048; 80076; 85025; 99284; J2405

== ENCOUNTER 2021-05-02 14:37 | Emergency (ER) | payer MEDICARE, OTHER ==
[~2021-05-02] VITALS: Ht 167.6 cm; Wt 140.6 kg
[~2021-05-02 14:37] MED LIST changes: +ONDANSETRON ODT4 MG PO
[2021-05-02] MEDS ORDERED: SODIUM CHLORIDE 0.9% 1000ML 1,000 ML IV SCH (16:00)
[2021-05-02] MEDS ORDERED: CEFTRIAXONE 1 GM in SODIUM CHLORIDE 0.9% 50ML 50 ML IV ONE (16:00)
[2021-05-02] MEDS ORDERED: CEFTRIAXONE 1 GM VIAL ONE (16:37)
[2021-05-02] MEDS ORDERED: SODIUM CHLORIDE 0.9% 1000ML 1,000 ML ONE (16:37)
[2021-05-02] MEDS ORDERED: CEFUROXIME500 MG PO (17:58)
[2021-05-02 18:15] VITALS: BP 133/74
== END 2021-05-02 18:15 | disposition home or self-care (01) ==
LOC: FSED 15:27
DX: R30.0 Dysuria (principal); N39.0 Urinary tract infection, site not specified; E11.65 Type 2 diabetes mellitus with hyperglycemia; E78.5 Hyperlipidemia, unspecified; I10 Essential (primary) hypertension; Z96.651 Presence of right artificial knee joint
CPT/HCPCS: 87086; 87186; 99283; J0696; J7030